=== PATIENT | male | born 1960 | race Caucasian/White ===

== ENCOUNTER 2020-03-16 11:24 | Outpatient (CLI) | payer BC, SELFPAY ==
--- NOTE | ~2020-03-16 | XR_ITS ---
EXAMINATION: XR chest 2V DATE: 03/16/2020 11:57 INDICATION: Contact with and suspected exposure to asbestos. TECHNIQUE: Frontal and lateral views of the chest were obtained. COMPARISON: Chest 2 views 08/20/2007 FINDINGS: The chest demonstrates clear lungs without pneumonia, pleural effusion, or pneumothorax. Th e heart size is normal. 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 IMPRESSION: 1. No acute cardiopulmonary disease. Reviewed, dictated and finalized at location A.
== END 2020-03-16 11:25 | disposition home or self-care (01) ==
PROVIDERS: PCP Family Medicine; Visit Provider Family Medicine
DX: Z77.090 Contact with and (suspected) exposure to asbestos (principal)
CPT/HCPCS: 71046

== ENCOUNTER 2020-05-13 00:55 | Outpatient (CLI) | payer BC, SELFPAY ==
[2020-05-13 18:13] LABS: SARS-CoV-2 RNA PCR Negative
== END 2020-05-13 00:56 | disposition home or self-care (01) ==
LOC: ANHCOVIDDT 00:56
PROVIDERS: PCP Family Medicine; Visit Provider Internal Medicine Gastroenterology
DX: Z01.812 Encounter for preprocedural laboratory examination (principal); Z11.59 Encounter for screening for other viral diseases
CPT/HCPCS: 87635; C9803; U0003

== ENCOUNTER 2020-05-16 01:06 | Day surgery (SDC) | payer BC, SELFPAY ==
[2020-05-08 13:30] VITALS: BMI 29.2
[2020-05-16 06:17] VITALS: BP 121/94; PULSE 74; RESP 18; TEMP 36.6; O2SAT 98
[2020-05-16] MEDS: LACTATED RINGERS 1,000 ML 150 ML IV CONT (06:32)
--- NOTE | 2020-05-16 07:03 | WPDANESEPPF ---
Anes - Initial Pre Proc Eval Procedure: Operation Date: 05/16/20 07:30 Proposed Procedures p Screening Colonoscopy - Kamran Cueto MD Date/Time: 05/16/20 07:03 Surgeon: Kamran Cueto MD Pre Op Diagnosis: Neoplasm Screening Patient Data Age: 59 Gender: M Height: 1.83 m Weight: 95.9 kg Last Vital Signs Temp 36.6 C 05/16/20 06:17 Pulse 74 05/16/20 06:17 Resp 18 05/16/20 06:17 BP 121/94 H 05/16/20 06:17 Pulse Ox 98 05/16/20 06:17 Allergies Allergy/AdvReac Type Severity Reaction Status Date / Time No Known Allergies Allergy Verified 05/16/20 06:16 Home Medications Medication Instructions Recorded Confirmed Type No Home Medications 05/16/20 05/16/20 History Patient hx anesthesia problems: none Family hx anesthesia problems: none PMFSH Past Medical History Medical History (Updated 03/16/20 @ 09:40 by Sergio Lewis MD) Asbestos exposure Screen for colon cancer Screening PSA (prostate specific antigen) Social History Social History Smoking status: Never smoker (occasional cigar) Tobacco type: cigars Second hand tobacco smoke exposure: No Alcohol intake: current Drinks per week: 5 Alcohol use details: BEERS Substance use: never Substance use type: does not use Living arrangements: with family Spiritual care concerns: No Anes - Eval Final PreProcedure Day of Procedure 05/16/20 07:03 Patient weight: overweight Heart: regular rate and rhythm Lungs: clear to auscultation and normal air movement Airway: Mallampati scale class II Neurological: alert and oriented Last oral intake: >/= 8 hours ASA classification: II Emergent: no Anesthetic plan: proceed Anesthesia type and monitoring: general GIVS Informed Consent: The patient's anesthetic plan and its attendant risks and benefits were discussed with the patient/family/POA. Questions were solicited and answers provided to the satisfaction of the patient/family/POA.
--- NOTE | 2020-05-16 07:34 | PM.HPGS ---
History of Present Illness History of Present Illness Consent: Risks, benefits, and alternatives have been discussed and questions answered. Patient agrees to proceed with procedure. Chief complaint: Neoplasm Screening Narrative: Clarence Phillips is a 59 year old male here for first colonoscopy Review of Systems Constitutional: Constitutional: Denies headache(s) and Denies weakness Eyes: Eyes: Denies blurry vision ENT: Reports Normal hearing present, Denies headache(s) and Denies neck pain Cardiovascular: Cardiovascular: Denies chest pain and Denies dyspnea Respiratory: Respiratory: Denies dyspnea Gastrointestinal: Gastrointestinal: Reports no additional gastrointestinal complaints Genitourinary: Genitourinary: Denies dysuria Musculoskeletal: Musculoskeletal: Denies neck pain Integumentary/Breasts: Skin/Breast: Denies dry skin Neurologic: Reports Normal hearing present, Denies headache(s) and Denies weakness Psychiatric: Psychiatric: Denies anxiety Endocrine: Endocrine: Denies change in body appearance Hematologic/Lymphatic: Hematologic/Lymphatic: Denies easy bleeding Allergic/Immunologic: Allergic/Immunologic: Denies urticaria PMF Past Medical History Medical History (Updated 03/16/20 @ 09:40 by Sergio Lewis MD) Asbestos exposure Screen for colon cancer Screening PSA (prostate specific antigen) Social History Social History Smoking status: Never smoker (occasional cigar) Tobacco type: cigars Second hand tobacco smoke exposure: No Alcohol intake: current Drinks per week: 5 Alcohol use details: Substance use: never Substance use type: does not use Living arrangements: with family Spiritual care concerns: No Meds Home Medications and Allergies Home Medications Medication Instructions Recorded Confirmed Type No Home Medications 05/16/20 05/16/20 History Allergies Allergy/AdvReac Type Severity Reaction Status Date / Time No Known Allergies Allergy Verified 05/16/20 06:16 Vital Signs Vital Signs - 24 hr 05/16/20 06:17 Temperature 97.9 F Pulse Rate 74 Respiratory Rate 18 Blood Pressure 121/94 H Pulse Oximetry 98 Exam Const: General: comfortable and no acute distress HENMT: General nose exam: Normal nares present Eyes: General: appearance normal, both eyes and all related structures Neck: Neck: no JVD Resp: Auscultation: clear to auscultation bilaterally Cardio: Rate: regular rate Rhythm: regular rhythm GI: Inspection: non-distended GI Palp: Yes Soft to palpation Skin: General skin exam: normal color Neuro: General: gait normal Speech: normal speech Extrem: General: normal to inspection Psych: Mental Status: mental status grossly normal Assessment and Plan Assessment and plan (1) Screen for colon cancer: Code(s): Z12.11 - Encounter for screening for malignant neoplasm of colon Status: Acute Assessment and Plan: proceed with colonoscopy
[2020-05-16 07:51] VITALS: BP 105/71; PULSE 67; RESP 15; O2SAT 98
[2020-05-16 08:01] VITALS: BP 108/74; PULSE 67; RESP 17; O2SAT 98
[2020-05-16 08:11] VITALS: BP 120/78; PULSE 62; RESP 12; O2SAT 98
[2020-05-16 08:21] VITALS: BP 110/74; PULSE 63; RESP 20; O2SAT 99
--- NOTE | 2020-05-16 17:05 | OP_ITS ---
DATE OF PROCEDURE: PROCEDURE: Colonoscopy. INDICATIONS: Screening for colon cancer. This is the first patient colonoscopy. FINDINGS: A small polyp in the cecum that was removed completely using biopsy forceps polypectomy technique, otherwise unremarkable. DESCRIPTION OF PROCEDURE: The patient signed consent and he was agreeable to proceed. He was brought to the endoscopy area and we did a timeout. We used MAC anesthesia. The patient was placed in the left lateral decubitus position and after he was sedated, I performed a rectal exam that was unremarkable. I then introduced the colonoscope through the anus and was advanced under direct visualization to the cecum. I identified the appendiceal orifice in the ileocecal valve. The quality of the prep was excellent. The terminal ileum was also intubated and that was normal. Then, I started to withdraw the scope very slowly and I took 6 minutes and 6 seconds time of withdrawal. All the colon mucosa in the and the vascular pallor was completely normal. I found a 2 mm polyp in the cecum that was removed completely using biopsy forceps polypectomy technique, other than that, this was unremarkable colonoscopy. The rectum was normal. Then, I removed the scope PLAN: After recovery time, the patient can go home. Because of the small polyp that I found today, he would need another colonoscopy in about 5 years. Followup with the primary care physician as needed. Jere I MT: Farideh TELLEZ
== END 2020-05-16 08:29 | disposition home or self-care (01) ==
PROVIDERS: PCP Family Medicine; Visit Provider Internal Medicine Gastroenterology
PROC: 0DJD8ZZ Inspection of Lower Intestinal Tract, Via Natural or Artificial Opening Endoscopic (ICD-10-PCS; CPT 45378; principal; 2020-05-16 07:30)
DX: Z12.11 Encounter for screening for malignant neoplasm of colon (principal); D12.0 Benign neoplasm of cecum; E66.3 Overweight; Z68.28 Body mass index [BMI] 28.0-28.9, adult; F17.290 Nicotine dependence, other tobacco product, uncomplicated
CPT/HCPCS: 45380; 88305; J2704; J7120

== ENCOUNTER 2021-04-26 10:30 | Outpatient (RCR) | payer BC, SELFPAY ==
--- NOTE | 2021-02-28 11:34 | PTOPEVAL ---
PHYSICAL THERAPY EVALUATION AND PLAN OF CARE Thank you for referring Clarence Phillips to [facility].? The patient is scheduled to be seen for therapy? 2x/week for 4 weeks. Please review, sign, date and return this plan of care PAYAL. I agree with and certify that the following plan of care is medically necessary. Referring Physician Date Attending Provider: Sergio Lewis MD Evaluation Diagnosis bilateral shoulder pain Onset 10/2020 Subjective Information Bilateral shoulder pain, with Query Text:As Reported By Patient/ left worse than right. Right Family shoulder ROM has been recovering, although does have some pins and needles at times. The left shoulder ROM continues to be very limited. He received an injection to the left shoulder with some relief of symptoms and increase of ROM. Clarence is active including enjoying lifting weights and other exercises. He has backed of doing some exercises to prevent pain. Self Report Pain Assessment Left Shoulder(s) Reported Pain Level 6 Pain Description Aching,Tightness Pain Frequency Chronic,Intermittent Lowest Pain Intensity 4 Greatest Pain Intensity 10 Pain Aggravating Factors Exercise/Activity,Lifting Other Pain Aggravating Factors sleeping on left Pain Behaviors Guarding Pain Score Pain Score 6: Self Report Interventions Used Interventions Used By Clinicians Exercise,Mobilization,Manual Therapy Techniques Upper Extremity Range of Motion Scapular/ Shoulder Range of Motion Left Shoulder Flexion - Active 145 Shoulder Abduction - Active 75 Shoulder Medial Rotation - Active belt buckle Query Text:Reach Behind the Back Shoulder Lateral Rotation - Passive 40 Shoulder Lateral Rotation - Active back of the head Query Text:Reach Behind the Head Right Shoulder Flexion - Active 160 Shoulder Medial Rotation - Active T12 Query Text:Reach Behind the Back Shoulder Lateral Rotation - Passive 70 Shoulder Lateral Rotation - Active T1 Query Text:Reach Behind the Head Upper Extremity Muscle Strength Testing Scapular/Shoulder Left Shoulder Flexion Strength 3+ Fair + Shoulder Extension Strength 4- Good - Shoulder Abduction Strength 3+ Fair + Shoulder Medial Rotation Strength 4- Good - Shoulder Lateral Rotation Strength 3+ Fair + Right Shoulder Flexion Strength
--- NOTE | 2021-04-05 10:46 | PTOPEVAL ---
PHYSICAL THERAPY PROGRESS REPORT Thank you for referring Clarence Phillips to [facility].? The patient is scheduled to be seen for therapy? for a follow-up in 3 weeks. Please review, sign, date and return this plan of care PAYAL. I agree with and certify that the following plan of care is medically necessary. Referring Physician Date Attending Provider: Sergio Lewis MD Diagnosis bilateral shoulder pain Onset 10/2020 Subjective Information Both shoulders are feeling Query Text:As Reported By Patient/ better. The left is better Family than the right. The right continues to have some sharp pains on occasion and some continued limited ROM. Left Shoulder(s) Reported Pain Level 1 Pain Description Tightness Pain Frequency Chronic,Intermittent Pain Aggravating Factors Exercise/Activity,Lifting Pain Behaviors Guarding Pain Score Pain Score 1: Self Report Interventions Used Interventions Used By Clinicians Manual Therapy Techniques Upper Extremity Range of Motion Scapular/ Shoulder Range of Motion Left Shoulder Flexion - Active 155 Shoulder Abduction - Active 168 Shoulder Medial Rotation - Active L1 Query Text:Reach Behind the Back Shoulder Lateral Rotation - Passive 55 Shoulder Lateral Rotation - Active C7 Query Text:Reach Behind the Head Scapular/Shoulder Range of Motion continues to have restricted Comments left horizontal abduction Right Shoulder Flexion - Active 160 Shoulder Abduction - Active 168 Shoulder Medial Rotation - Active T12 Query Text:Reach Behind the Back Shoulder Lateral Rotation - Passive 70 Shoulder Lateral Rotation - Active T1 Query Text:Reach Behind the Head Upper Extremity Muscle Strength Testing Scapular/Shoulder Left Shoulder Flexion Strength 5 Normal Shoulder Extension Strength 5 Normal Shoulder Abduction Strength 5 Normal Shoulder Medial Rotation Strength 5 Normal Shoulder Lateral Rotation Strength 5 Normal Right Shoulder Flexion Strength 5 Normal Shoulder Extension Strength 4+ Good + Shoulder Abduction Strength 5 Normal Shoulder Medial Rotation Strength 5 Normal Shoulder Lateral Rotation Strength 5 Normal Muscle Length Testing Muscle Length Testing Shoulder Internal Rotators Muscle Length (R) Mild Tightness,(L) Mild Tightness Shoulder External Rotators Muscle Length (R) Mild Tightness,(L) Mild Tightness Pectoralis Major Muscle Length (R) Mild Tightness,(L) Mild Tightness Posture Posture Sitting Position Posture Evaluation View Anterior Head/C-Spine Posture Forward Head Shoulder P
--- NOTE | 2021-04-26 11:02 | PTOPEVAL ---
PHYSICAL THERAPY DISCHARGE Thank you for referring Clarence Phillips to [facility].? Please review, sign, date and return this plan of care PAYAL. I agree with and certify that the following plan of care is medically necessary. Referring Physician Date Attending Provider: Sergio Lewis MD Discharge Diagnosis bilateral shoulder pain Onset 10/2020 Subjective Information continues to feel very good. Query Text:As Reported By Patient/ continues to do his exercises. Family Orthopedic doctor is releasing him Self Report Pain Assessment Left Shoulder(s) Reported Pain Level 0 Pain Description Tightness Pain Frequency Chronic,Intermittent Pain Aggravating Factors Exercise/Activity,Lifting Pain Behaviors Guarding Pain Score Pain Score 0: Self Report Interventions Used Interventions Used By Clinicians Exercise Upper Extremity Range of Motion Scapular/ Shoulder Range of Motion Left Shoulder Flexion - Active 155 Shoulder Abduction - Active 168 Shoulder Medial Rotation - Active L1 Query Text:Reach Behind the Back Shoulder Lateral Rotation - Active T2 Query Text:Reach Behind the Head Scapular/Shoulder Range of Motion continues to have restricted Comments left horizontal abduction Right Shoulder Flexion - Active 160 Shoulder Abduction - Active 168 Shoulder Medial Rotation - Active T12 Query Text:Reach Behind the Back Shoulder Lateral Rotation - Active T1 Query Text:Reach Behind the Head Upper Extremity Muscle Strength Testing Scapular/Shoulder Left Shoulder Flexion Strength 5 Normal Shoulder Extension Strength 5 Normal Shoulder Abduction Strength 5 Normal Shoulder Medial Rotation Strength 5 Normal Shoulder Lateral Rotation Strength 5 Normal Right Shoulder Flexion Strength 5 Normal Shoulder Extension Strength 5 Normal Shoulder Abduction Strength 5 Normal Shoulder Medial Rotation Strength 5 Normal Shoulder Lateral Rotation Strength 5 Normal Posture Posture Evaluation View Anterior Head/C-Spine Posture Forward Head Shoulder Posture Neutral Rehab Teaching Topic Components Body Mechanics,Exercise,Home Program As Pertains To Safety,Technique,Therapy Prognosis Recipient Patient Learning Preferences Demonstration,Discussion Barriers to Learning None Readiness to Learn Excellent Response Returns Demonstration, Verbalizes Understanding Method Arya
== END 2021-04-26 16:38 | disposition home or self-care (01) ==
LOC: ANHPT 10:30
PROVIDERS: PCP Family Medicine; Visit Provider Family Medicine
DX: M25.511 Pain in right shoulder (principal); M25.512 Pain in left shoulder; G89.29 Other chronic pain
CPT/HCPCS: 97110; 97140; 97161

== ENCOUNTER → 2021-09-05 08:04 | Outpatient (CLI) | payer BC, SELFPAY ==
[2021-09-06 02:21] LABS: SARS-CoV-2 RNA PCR Positive
== END ==
PROVIDERS: PCP Family Medicine; Visit Provider Nurse Practitioner Family
DX: U07.1 COVID-19 (principal)
CPT/HCPCS: C9803; U0003; U0005

== ENCOUNTER 2024-03-08 12:12 | Outpatient (CLI) | payer BC, SELFPAY ==
--- NOTE | ~2024-03-08 | XR_ITS ---
XR ribs BI 3V w CXR 2V Ordering provider: MADELINE Mishra History: . R07.81 - Pleurodynia . Comparison: None. FINDINGS: BONES: No acute rib fracture. MEDIASTINUM: The cardiac silhouette is not enlarged. LUNGS: No effusions or infiltrates. No pneumothorax. SOFT TISSUES: Normal. Degenerative changes of the spine. IMPRESSION: No acute osseous abnormality of the bilateral ribs. Reviewed, dictated and finalized at location A.
== END 2024-03-08 12:13 ==
LOC: MICIMG 12:16
PROVIDERS: PCP Family Medicine; Visit Provider Nurse Practitioner Family
DX: R07.81 Pleurodynia (principal)
CPT/HCPCS: 71046; 71110